=== PATIENT | male | born 1965 | race Caucasian/White ===

== ENCOUNTER 2017-01-27 15:43 | Emergency (ER) | payer OTHER ==
[~2017-01-27] VITALS: Ht 182.9 cm; Wt 86.2 kg
[2017-01-27 16:26] LABS: ABSOLUTE BASOPHIL COUNT 0 /CUMM (0.0-0.2); ABSOLUTE EOSINOPHIL COUNT 0.2 /CUMM (0.0-0.7); ABSOLUTE LYMPH COUNT 2.7 /CUMM (1.2-3.4); ABSOLUTE MONOCYTE COUNT 0.6 /CUMM (0.10-0.60); BASOPHIL % 0.2 % (0.0-2.0); EOSINOPHIL % 1.6 % (0-5); GRANULOCYTE % 69.4 % (42.2-75.2); HEMATOCRIT 49.1 % (42-52); MEAN CORPUSCULAR HGB 30.2 PG (27.0-31.0); MEAN CORPUSCULAR HGB CONC 32.8 G/DL (33.0-37.0); MEAN PLATELET VOLUME 7.8 FL (7.4-10.4); PLATELET COUNT 309 /CUMM (130-400); RBC DISTRIBUTION WIDTH 13.9 % (11.5-14.5); RED BLOOD CELL CT 5.34 /CUMM (4.70-6.10); WHITE BLOOD CELL COUNT 11.6 /CUMM (4.8-10.8)
--- NOTE | 2017-01-27 17:26 | ED PSYCHIATRIC COMPLAINT ---
History of Present Illness General Chief Complaint: ETOH/Drug Related Complaint Stated Complaint: REQUESTING DETOX Source: patient, old records Exam Limitations: no limitations Allergies Coded Allergies: No Known Allergies (01/27/17) Reconcile Medications No Known Home Medications Triage Note: PT TO ED FOR ETOH DETOX "I'VE DRANK ALL OF MY LIFE BUT THE LAST 4-5 WEEKS I HAVE BEEN DRINKING VODKA PROBABLY FOR 10 HOURS A DAY, I DRINK ABOUT 1 LITER EVERY 3-4 DAYS". NEVER HAS GONE THROUGH DETOX BEFORE. Triage Nurses Notes Reviewed? yes HPI: Patient presents for evaluation of alcohol detox. (TJ ALLEN,TRACEE Trammell) Vital Signs & Intake/Output Vital Signs & Intake/Output Vital Signs Date Time Temp Pulse Resp B/P Pulse O2 O2 Flow FiO2 Ox Delivery Rate 01/28 1200 97.4 103 18 144/91 01/28 1149 97.4 103 18 144/91 01/28 1149 97.4 103 18 144/91 96 Room Air 01/28 1018 97.6 84 20 158/87 01/28 1018 97.6 84 20 158/87 95 Room Air 01/28 0832 96.6 93 20 147/87 01/28 0832 96.6 93 20 147/87 96 Room Air 01/28 0645 99.3 84 18 138/90 01/28 0626 99.3 84 18 138/90 97 Room Air 01/28 0425 97.0 91 18 137/83 01/28 0407 97.0 91 18 137/81 97 Room Air 01/27 2300 97.3 93 18 135/80 01/27 2233 97.3 93 18 135/80 98 Room Air 01/27 2023 97.7 110 18 163/87 98 Room Air 01/27 1848 97.4 91 18 133/71 94 Room Air 01/27 1602 98.6 107 22 133/87 94 Room Air ED Intake and Output 01/28 0000 01/27 1200 Intake Total Output Total Balance Patient 190 lb Weight Past History Travel History Traveled to [place] past 21 day No Medical History Any Pertinent Medical History? 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 No (TRACEE MARTINEZ MD) Review of Systems Review of Systems Constitutional: Reports: no symptoms. EENTM: Reports: no symptoms. Respiratory: Reports: no symptoms. Cardiovascular: Reports: no symptoms. GI: Reports: no symptoms. Genitourinary: Reports: no symptoms. Musculoskeletal: Reports: no symptoms. Skin: Reports: no symptoms. Neurological/Psychological: Reports: no symptoms. Hematologic/Endocrine: Reports: no symptoms. Immunologic/Allergic: Reports: no symptoms. All Other Systems: Reviewed and Negative (TJ ALLEN,TRACEE Trammell) Physical Exam Physical Exam Neurological/Psychiatric: awake, alert, depressed affect SAD PERSONS Done? patient not suicidal (TRACEE MARTINEZ MD) Physical Exam General Appearance: well developed/nourished, alert, awake, anxious, mild distress Head: atraumatic, normal appearance Eyes: Bilateral: normal appearance, PERRL, EOMI. 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 01/28/2017 9:53:06 AM patient signed out to me by Dr. Higgins. I have updated Marcello on test results. Unfortunately he is not a good candidate for [facility] given the severity of his withdrawal. He is also not a candidate for inpatient treatment given the [facility] alcohol detox[facility] protocol. He is feeling nauseous at this point so I have ordered Phenergan for him. We will continue to monitor his CIWA scores. 01/28/2017 12:02:00 PM case d/w dr shah who recommends clonidine, farrah and keppra. Recheck CIWA in 1-2 hours and if this CIWA score is less than 8 patient may be discharged to [facility]. (TJ ALLEN,TRACEE Trammell) Plan of Care: Orders Procedure Date/time Status Regular Diet 01/28 B Active CIWA 01/27 1727 Active URINE DRUG SCREEN FOR ER ONLY 01/27 1601 Complete ETHANOL 01/27 1601 Complete COMPREHENSIVE METABOLIC PANEL 01/27 1601 Complete CBC WITHOUT DIFFERENTIAL 01/27 1601 Complete Laboratory Tests 01/27/17 1619: Urine Opiates Screen < 100.00, Methadone Screen < 40, Barbiturate Screen < 60, Ur Phencyclidine Scrn < 6.00, Amphetamines Screen < 100, U Benzodiazepines Scrn < 85, Urine Cocaine Screen < 50, Urine Cannabis Screen < 5.00 01/27/17 1601: Anion Gap 20 H, Estimated GFR > 60, BUN/Creatinine Ratio 12.5, Glucose 100 H, Calcium 9.8, Total Bilirubin 0.5, AST 45, ALT 76 H, Alkaline Phosphatase 66, Total Protein 8.4 H, Albumin 4.9, Globulin 3.5, Albumin/Globulin Ratio 1.4, CBC w Diff NO MAN DIFF REQ, RBC 5.34, MCV 92.0, MCH 30.2, RDW 13.9, MPV 7.8, Gran % 69.4, Lymphocytes % 23.5, Monocytes % 5.3, Eosinophils % 1.6, Basophils % 0.2, Absolute Granulocytes 8.0 H, Absolute Lymphocytes 2.7, Absolute Monocytes 0.6, Absolute Eosinophils 0.2, Absolute Basophils 0, PUBS MCHC 32.8 L, Serum Alcohol 280.0 01/27/2017 8:40:21 PM Patient signed out to me by Dr. Martinez at change of shift. Pending CIWA scores and sobriety. If stable patient may be a candidate for outpatient rehabilitation at [facility]. (LACI ALLEN,OSMANY) Hand-Off Endorsed To: TRACEE MARTINEZ MD Endorsed Time: 0700 Pending: other (TRANSFER TO [facility]) (OSMANY HIGGINS MD) Departure Departure Disposition: ACUTE REHAB FACILITY Condition: Stable Clinical Impression Primary Impression: Alcohol withdrawal Qualifiers: Complication of substance-induced condition: uncomplicated Qualified Code: F10.230 - Alcohol dependence with withdrawal, uncomplicated Referrals: UNKNOWN (PCP/Family) Additional Instructions: Report to [facility] as soon as possible. Departure Forms: Customer Survey General Discharge Information Prescriptions: Current Visit Scripts No Known Home Medications (TRACEE MARTINEZ MD) PA/READING INTERVENTIONIST Co-Sign Statement Statement: ED Attending supervision documentation- [] I saw and evaluated the patient. I have also reviewed all the pertinent lab results and diagnostic results. I agree with the findings and the plan of care as documented in the PA's/READING INTERVENTIONIST's documentation. [X] I have reviewed the ED Record and agree with the PA's/READING INTERVENTIONIST's documentation. [] Additions or exceptions (if any) to the PAs/READING INTERVENTIONIST's note and plan are summarized below: [] (LACI ALLEN,OSMANY)
[2017-01-28 13:31] VITALS: BP 145/88
== END 2017-01-28 13:39 ==
LOC: ERH 15:43
PROVIDERS: Emergency Medicine
DX: F10.239 Alcohol dependence with withdrawal, unspecified (principal)
CPT/HCPCS: 80307; G0480; J2550